=== PATIENT | female | born 1960 | race African-American/Black ===

== ENCOUNTER 2019-01-12 01:11 | Emergency (ER) | payer BC, OTHER ==
[2019-01-12] MEDS ORDERED: Ketorolac Tromethamine 60 MG/2 ML VIAL ONE (01:51)
== END 2019-01-12 02:05 | disposition home or self-care (01) ==
LOC: ERS 01:11
DX: M54.5 Low back pain (principal); E03.9 Hypothyroidism, unspecified; F17.210 Nicotine dependence, cigarettes, uncomplicated; Z79.899 Other long term (current) drug therapy
CPT/HCPCS: 96372; 99283; J1885

== ENCOUNTER 2019-01-18 22:09 | Emergency (ER) | payer BC ==
[2019-01-18] MEDS ORDERED: Ketorolac Tromethamine 60 MG/2 ML VIAL ONE (22:59)
--- NOTE | 2019-01-18 23:51 | CT ---
CT Stone Protocol History: Back pain Comparison: None. Findings: Lung bases are clear. No pericardial effusion. No nephroureterolithiasis or hydroureteronephrosis. No secondary evidence of a recently passed stone. No free intraperitoneal gas or fluid. No dilated loops of large or small bowel. The appendix is visualized and is normal. Aortic contour is normal. No acute osseous abnormality. Circumferential disc osteophyte complex at L3/L4 causes severe neural f oraminal narrowing as well as narrowing of the spinal canal. There is also neural foraminal narrowing at L4/L5 and L5/S1. Bilateral os acetabula are present. Can deformities of both femoral head/neck junction. Impression: 1. No nephroureterolithiasis or hydroureteronephrosis. No secondary evidence of recently passed stone . 2. Multilevel neural foraminal and spinal canal narrowing of the lumbar spine.
--- NOTE | 2019-01-18 23:58 | CT ---
CT Lumbar Spine WO Con History: Pain Comparison: None. Findings: No acute fracture of the lumbar spine. No listhesis. Levels are as follows: L1/L2: Mild degenerative disc space height loss. No neural foraminal or spinal canal narrowing. L2/L3: Mild degenerative disc space height loss. Bilateral subforaminal disc osteophyte complexes. Mo derate bilateral neural foraminal narrowing. L3/L4: Circumferential disc osteophyte complex causing high-grade bilateral neural foraminal narrowin g. There is also narrowing of the spinal canal to approximately 6 mm. Moderate hypertrophic facet arthropathy. The disc material is peripherally calcified. L4/L5: Circumferential disc bulge with peripherally ossified disc material. Moderate to severe bilate ral neural foraminal narrowing. Moderate hypertrophic facet arthropathy. There is ligamentum flavum ossification. Spinal canal is narrowed to approximately 5 mm. L5/S1: Circumferential disc bulge. Mild facet arthropathy. Moderate to severe bilateral neural forami nal narrowing. Impression: Multilevel neural foraminal and spinal canal narrowing. No acute fracture.
[2019-01-19] MEDS ORDERED: Diazepam 5 MG TAB ONE (01:23)
[2019-01-19 02:27] LABS: Bacteria/HPF None Seen HPF (None Seen); Bilirubin Negative (Negative); Blood, Urine Trace (Negative); Clarity Turbid (Clear); Glucose, Urine (Dipstick) Normal (Negative); Leukocyte Negative Leu/uL (Negative); Mucous/LPF 1+ LPF (<2+); Nitrite Negative (Negative); Protein, Urine (Dipstick) 10 mg/dL (Neg-Trace); RBC/HPF 0-3 HPF (0-3); Urobilinogen Normal mg/dL (Less than 2); WBC/HPF 0-3 HPF (0-3)
== END 2019-01-19 02:46 | disposition home or self-care (01) ==
LOC: ERS 22:09
DX: M51.26 Other intervertebral disc displacement, lumbar region (principal); E05.90 Thyrotoxicosis, unspecified without thyrotoxic crisis or storm; F17.210 Nicotine dependence, cigarettes, uncomplicated; Z79.899 Other long term (current) drug therapy
CPT/HCPCS: 72131; 74176; 81003; 81015; 96372; J1885

== ENCOUNTER 2019-01-21 10:51 | Emergency (ER) | payer BC ==
[2019-01-21] MEDS ORDERED: Morphine 4 MG/ML VIAL ONE (12:07)
[2019-01-21] MEDS ORDERED: Morphine 2 MG/ML SYRINGE ONE (12:08)
== END 2019-01-21 13:03 | disposition home or self-care (01) ==
LOC: ERS 10:51
DX: M62.830 Muscle spasm of back (principal); F17.210 Nicotine dependence, cigarettes, uncomplicated; E78.00 Pure hypercholesterolemia, unspecified; Z79.891 Long term (current) use of opiate analgesic; Z79.899 Other long term (current) drug therapy
CPT/HCPCS: 96372; 99283; J2270